=== PATIENT | female | born 1975 | race Hispanic/Latino ===

== ENCOUNTER 2020-10-14 00:48 | Emergency (ER) | payer BC ==
[~2020-10-14] VITALS: Ht 165.1 cm; Wt 63.5 kg
[2020-10-14 00:58] VITALS: BP 102/56
[2020-10-14] MEDS ORDERED: MELO7.5T12 PO (02:23)
[2020-10-14] MEDS ORDERED: CYCL10TA7 PO (02:23)
[2020-10-14] MEDS ORDERED: IBUPROFEN 400 MG TABLET ONE (02:27)
[2020-10-14] MEDS ORDERED: ACETAMINOPHEN 500 MG TABLET ONE (02:28)
[2020-10-14] MEDS ORDERED: ACETAMINOPHEN 500 MG TABLET PO ONE (02:30)
[2020-10-14] MEDS ORDERED: IBUPROFEN 600 MG TABLET PO ONE (02:30)
[2020-10-14] MEDS ORDERED: LIDOCAINE HCL 1% 20 ML VIAL ONE (02:33)
[2020-10-14] MEDS ORDERED: LIDOCAINE HCL 1% 20 ML VIAL INJ ONE (03:00)
== END 2020-10-14 03:08 | disposition home or self-care (01) ==
LOC: EDH 00:48
DX: S62.626A Displaced fracture of middle phalanx of right little finger, initial encounter for closed fracture (principal); Z79.899 Other long term (current) drug therapy; X50.1XXA Overexertion from prolonged static or awkward postures, initial encounter; Y93.89 Activity, other specified; Y92.89 Other specified places as the place of occurrence of the external cause; Y99.8 Other external cause status
CPT/HCPCS: 73140